=== PATIENT | female | born 1950 | race Caucasian/White ===

== ENCOUNTER 2022-01-04 15:26 | Emergency (ER) | payer OTHER ==
[~2022-01-04] VITALS: Ht 154.9 cm; Wt 113.6 kg
[2022-01-04 15:39] VITALS: BP 179/70
--- NOTE | 2022-01-04 15:48 | NUR ---
PT W/C ASSISTED TO BED 7.
[2022-01-04] MEDS ORDERED: ACETAMINOPHEN EXTRA STRENGTH 500 MG TAB PO ONE (16:20)
[2022-01-04 16:38] LABS: BASOPHILS # (AUTO) 0.1 K/uL (0.00-0.22); BASOPHILS % (AUTO) 1.1 % (0.0-2.0); EOSINOPHILS # (AUTO) 0.2 K/uL (0-0.4); EOSINOPHILS % (AUTO) 1.9 % (0.0-4.0); HEMATOCRIT 34.5 % (36-48); HEMOGLOBIN 11.1 g/dL (12.0-16.0); LYMPHOCYTES # (AUTO) 1.8 K/uL (2.5-16.5); LYMPHOCYTES % (AUTO) 20.9 % (20.5-51.1); MEAN CORPUSCULAR HEMOGLOBIN 26 pg (27-31); MEAN CORPUSCULAR HGB CONC 32 g/dL (33-37); MEAN CORPUSCULAR VOLUME 80.5 fL (80-94); MONOCYTES # (AUTO) 0.6 K/uL (0.8-1.0); MONOCYTES % (AUTO) 7.2 % (1.7-9.3); NEUTROPHILS % (AUTO) 68.9 % (42.2-75.2); PLATELET COUNT (AUTO) 212 K/uL (140-450); RED BLOOD CELL COUNT(AUTO) 4.29 MIL/uL (4.20-5.40); RED CELL DISTRIBUTION WIDTH 18.1 % (11.6-13.7); WHITE BLOOD COUNT (AUTO) 8.7 K/uL (4.8-10.8)
--- NOTE | 2022-01-04 17:00 | NUR ---
66 y/o female, c/o bl leg edema for 2 days, increased pain with ambulation and palpation. states her bilateral leg edema has become more severe than usual 2 days ago, right more severe than the left. pt she called her aligner typewriter earlier today who referred her to the ED to check for blood clots. Has a history of DVT one year ago. a&o x4 with even and steady gait. lungs clear bl, heart rate even and regular. ermd made aware of pt. pmh: cardiac disorders, htn, chf, hld, kidney disease, afib, dvt allergy: egg, sulfa, benadryl, pseudoephedrine med: tylenol 1000mg, eliquis
--- NOTE | 2022-01-04 17:04 | NUR ---
Ultrasound at bedside.
[2022-01-04 17:05] LABS: ALBUMIN 3.2 g/dL (3.4-5.0); ANION GAP 9.6 (8-16); CARBON DIOXIDE 31.8 mmol/L (21-32); CREATININE 0.9 mg/dL (0.6-1.3); POTASSIUM 4.4 mmol/L (3.5-5.1); TOTAL BILIRUBIN 0.2 mg/dL (0.0-1.0)
[2022-01-04] MEDS ORDERED: CEPH-588 PO (18:31)
[2022-01-04 18:46] VITALS: BP 179/70
--- NOTE | 2022-01-04 18:54 | NUR ---
Patient discharged with v/s stable. Written and verbal after care instructions given and explained. Patient alert, oriented and verbalized understanding of instructions. Ambulatory with steady gait. All questions addressed prior to discharge. ID band removed. Patient advised to follow up with PMD. Rx of keflex (sent) given. Patient educated on indication of medication including possible reaction and side effects. Opportunity to ask questions provided and answered.
== END 2022-01-04 18:54 | disposition home or self-care (01) ==
LOC: MED 15:26
DX: L03.116 Cellulitis of left lower limb (principal); L03.115 Cellulitis of right lower limb; I11.0 Hypertensive heart disease with heart failure; I50.9 Heart failure, unspecified; E78.5 Hyperlipidemia, unspecified; Z79.899 Other long term (current) drug therapy; Z88.8 Allergy status to other drugs, medicaments and biological substances
CPT/HCPCS: 36415; 80053; 81002; 83880; 84484; 85025; 93005; 93970; 99285; Q0092